=== PATIENT | male | born 1980 | race African-American/Black ===

== ENCOUNTER 2016-11-12 03:29 | Emergency (ER) | payer OTHER ==
[~2016-11-12] VITALS: Ht 170.2 cm; Wt 83.9 kg
[2016-11-12] MEDS ORDERED: NS 1,000 ML IV ONE (04:30)
[2016-11-12] MEDS: MORPHINE 4 MG/ML 1ML SYRINGE IV PRN ×2 (04:44→05:12)
[2016-11-12 04:53] LABS: BASO % 1.2 % (0.0-1.0); EOS # 0.2 K/mm3 (0.0-0.50); EOS % 5.6 % (0.0-3.0); LARGE UNSTAINED CELL # 0.1 K/mm3 (0.0-0.4); LARGE UNSTAINED CELL % 2.9 % (0.0-4.0); MEAN CORPUSCULAR HGB CONC 34.4 g/dl (32.0-36.5); MEAN CORPUSCULAR VOLUME 84.3 fl (80.0-96.0); MONO # 0.3 K/mm3 (0.0-0.8); NEUTROPHILS # 1.4 K/mm3 (1.8-7.7); NEUTROPHILS % 47.3 % (36.0-66.0); PLATELET COUNT, AUTOMATED 188 k/mm3 (150-450); RED CELL DISTRIBUTION WIDTH 12.3 % (11.5-14.5)
[2016-11-12 05:12] LABS: ALBUMIN 3.7 GM/DL (3.2-5.2); ALBUMIN/GLOBULIN RATIO 1.06 (1.00-1.93); ALKALINE PHOSPHATASE 46 U/L (45-117); ALT/SGPT 70 U/L (12-78); ANION GAP 8 MEQ/L (8-16); AST/SGOT 36 U/L (15-37); BILIRUBIN,DIRECT 0.3 MG/DL (0.0-0.2); BILIRUBIN,TOTAL 1.6 MG/DL (0.2-1.0); BLOOD UREA NITROGEN 10 MG/DL (7-18); CALCIUM LEVEL 8.3 MG/DL (8.5-10.1); CARBON DIOXIDE LEVEL 26 MEQ/L (21-32); CHLORIDE LEVEL 108 MEQ/L (98-107); CREATININE FOR GFR 1.11 MG/DL (0.70-1.30); GLOMERULAR FILTRATION RATE > 60.0 (>60); GLUCOSE, FASTING 104 MG/DL (70-105); POTASSIUM SERUM 4.2 MEQ/L (3.5-5.1); SODIUM LEVEL 142 MEQ/L (136-145); TOTAL PROTEIN 7.2 GM/DL (6.4-8.2)
[2016-11-12] MEDS ORDERED: NORCOTAB PO (06:13)
[2016-11-12] MEDS ORDERED: CIPR500T89 PO (06:13)
[2016-11-12] MEDS ORDERED: FLOM5CAP PO (06:13)
[2016-11-12] MEDS ORDERED: NORCO 5/325MG TABLET (BULK FOR ED) PO ONE (06:15)
[2016-11-12] MEDS ORDERED: TAMSULOSIN 0.4 MG CAP PO ONE (06:15)
[2016-11-12] MEDS ORDERED: KETOROLAC 30 MG/ML VIAL (J1885) IV ONE (06:15)
--- NOTE | 2016-11-12 06:20 | REPUSA ---
CLINICAL HISTORY: Abdominal pain. TECHNIQUE: Multiple axial, sagittal and coronal CT images were obtained through the abdomen and pelvi s without administration of oral or IV contrast material. COMMENTS: The liver is of uniform attenuation without mass or defect. There is no intra or extrahepatic biliary ductal dilatation. The spleen is normal. The gallbladder is within normal limits. The pancreas is of normal contour and attenuation characteristics. There is no evidence of adrenal mass. 4.5 mm obstructing stone of the right ureter at L3 level. Mild right hydroureteronephrosis There is no left hydroureter or hydronephrosis. There is no evidence for appendicitis. There is no bowel wall thickening. No evidence for small or la rge bowel obstruction. There is no evidence of abdominal ascites or lymphadenopathy. There is no evidence of intrinsic or extrinsic bladder mass. There is no pelvic ascites or lymphadeno cynthia. Images of the lung bases show no evidence of pleural or parenchymal mass. There are no pleural effusi ons. The bony structures are free of lytic or blastic lesions. IMPRESSION: Obstructing stone of the right ureter. Thank you for your kind referral of this patient.
[2016-11-12 06:30] VITALS: BP 127/72
[2016-11-17] MEDS ORDERED: ONDA1TAB15 PO (12:37)
[2016-11-17] MEDS ORDERED: NAPR500T2 PO (12:37)
== END 2016-11-12 06:34 | disposition home or self-care (01) ==
LOC: EDBD 03:29 → M ED 04:50
DX: N20.1 Calculus of ureter (principal); Z87.442 Personal history of urinary calculi
CPT/HCPCS: 36415; 74176; 80048; 80076; 81001; 83690; 85025; 87086; 93041; 96374; 96375; 96376; 99284; J1885

== ENCOUNTER 2016-11-14 07:41 | Emergency (ER) | payer OTHER ==
[~2016-11-14] VITALS: Ht 170.2 cm; Wt 83.9 kg
[~2016-11-14 07:41] MED LIST: CIPR500T89 PO; FLOM5CAP PO; NORCOTAB PO
[2016-11-14] MEDS ORDERED: ONDANSETRON 4MG/2ML VIAL (J2405) IV ONE (08:15)
[2016-11-14] MEDS ORDERED: KETOROLAC 30 MG/ML VIAL (J1885) IV ONE (08:15)
[2016-11-14 08:53] LABS: BASO % 0.4 % (0.0-1.0); EOS % 0.8 % (0.0-3.0); LARGE UNSTAINED CELL # 0.1 K/mm3 (0.0-0.4); LYMPH # 0.7 K/mm3 (1.5-4.5); LYMPH % 13.1 % (24.0-44.0); MEAN CORPUSCULAR HGB CONC 35.1 g/dl (32.0-36.5); MEAN CORPUSCULAR VOLUME 85.7 fl (80.0-96.0); MONO # 0.3 K/mm3 (0.0-0.8); MONO % 5.8 % (0.0-5.0); NEUTROPHILS # 3.9 K/mm3 (1.8-7.7); NEUTROPHILS % 78.8 % (36.0-66.0); PLATELET COUNT, AUTOMATED 167 k/mm3 (150-450); RED CELL DISTRIBUTION WIDTH 12.4 % (11.5-14.5); WHITE BLOOD COUNT 4.9 K/mm3 (4.0-10.0)
[2016-11-14 09:02] LABS: ANION GAP 8 MEQ/L (8-16); BLOOD UREA NITROGEN 11 MG/DL (7-18); CALCIUM LEVEL 8.6 MG/DL (8.5-10.1); CARBON DIOXIDE LEVEL 28 MEQ/L (21-32); CHLORIDE LEVEL 108 MEQ/L (98-107); CREATININE FOR GFR 1.58 MG/DL (0.70-1.30); GLOMERULAR FILTRATION RATE > 60.0 (>60); GLUCOSE, FASTING 115 MG/DL (70-105); POTASSIUM SERUM 3.6 MEQ/L (3.5-5.1); SODIUM LEVEL 144 MEQ/L (136-145)
--- NOTE | 2016-11-14 09:35 | REP ---
Clinical: Right obstructive uropathy. Comparison: CT dated 11/12/2016. Findings: Right kidney demonstrates mild hydronephrosis and proximal hydroureter unchanged when compared to CT dated 11/12/2016. No right-sided nephrolithiasis, perinephric stranding, cystic or mass lesion is appreciated. Left kidney is normal in appearance without hydronephrosis, perinephric stranding, cystic or mass lesion. The bladder demonstrates left ureteral jet and the absence of the right ureteral jet may be secondary to known obstructive uropathy. Right kidney measures 11.6 x 5.0 x 5.4 cm. Left kidney measures 11.5 x 4.6 x 6.1 cm. Impression: Mild right hydroureteronephrosis and absence of right ureteral jet within the bladder is consistent with the known obstructive uropathy based on CT dated 11/12/2016. Signed by Heron Roa MD 11/14/2016 09:27 A
[2016-11-14] MEDS ORDERED: NAPR500T PO (10:50)
[2016-11-14] MEDS ORDERED: ZOFR4TAB3 PO (10:50)
[2016-11-14 11:23] VITALS: BP 134/75
[2016-11-17] MEDS ORDERED: NAPR500T2 PO (12:37)
[2016-11-17] MEDS ORDERED: ONDA1TAB15 PO (12:37)
== END 2016-11-14 11:26 | disposition home or self-care (01) ==
LOC: M ED 08:22
DX: N20.1 Calculus of ureter (principal); N13.30 Unspecified hydronephrosis; R11.2 Nausea with vomiting, unspecified; Z87.442 Personal history of urinary calculi
CPT/HCPCS: 36415; 76775; 80048; 81001; 85025; 96374; 96375; 99282; J1885; J2405

== ENCOUNTER → 2016-11-18 | Day surgery (SDC) | payer OTHER ==
[~2016-11-18] VITALS: Ht 170.2 cm; Wt 83.9 kg
[~2016-11-18] MED LIST changes: +CONRAY-60 60% 50ML VIAL (Q9961) As Ordered ONE; +HYDROmorphone HCL 1 MG/ML SYRINGE (J1170) IV PRN; +LIDOCAINE 2% INJ 100 MG/5 ML SDV (FOR ANES.) As Ordered ONE; +LR 1,000 ML IV SCH; +METOCLOPRAMIDE INJ 10MG/2ML VIAL (J2765) As Ordered ONE; +METOCLOPRAMIDE INJ 10MG/2ML VIAL (J2765) IV PRN; +MIDAZOLAM INJ 2 MG/2 ML VIAL (J2250) As Ordered ONE; +NAPR500T PO; +NAPR500T2 PO; +NORCO, ANEXSIA 5/325MG TABLET (HYDROcodone/ACETAMINOPHEN) PO PRN; +ONDA1TAB15 PO; +ONDANSETRON 4MG/2ML VIAL (J2405) As Ordered ONE; +ONDANSETRON 4MG/2ML VIAL (J2405) IV PRN; +PERCOCET 5MG/325MG TAB PO PRN; +PROPOFOL 200 MG/20 ML VIAL As Ordered ONE; +ROCURONIUM BROMIDE 50 MG/5 ML VIAL As Ordered ONE; +SUCCINYLCHOLINE 100 MG/5 ML SYRINGE (J0330) As Ordered ONE; +ZOFR4TAB3 PO; +dexameTHASONE 4 MG/ML 1ML VIAL (J1100) As Ordered ONE; +fentaNYL 100 MCG/2 ML INJECTION (J3010) As Ordered ONE; +fentaNYL 100 MCG/2 ML INJECTION (J3010) IV PRN
--- NOTE | 2016-11-18 14:08 | REP ---
Clinical: Nephrolithiasis. Technique: Retrograde pyelogram. Findings: Intraoperative fluoroscopic images demonstrate the patient to be status post right ureteral stent placement. Total fluoroscopic time 13 seconds. Impression: Status post right ureteral stent placement. Signed by Heron Roa MD 11/18/2016 01:59 P
[2016-11-18 15:30] VITALS: BP 161/72
--- NOTE | 2016-11-18 21:11 | RO ---
DATE OF PROCEDURE: 11/18/2016 PREPROCEDURE DIAGNOSIS: Obstructing right ureteral stone. POSTPROCEDURE DIAGNOSIS: Obstructing right ureteral stone. PROCEDURE: Cystoscopy, right ureteroscopy with laser lithotripsy and basket extraction of stones, right retrograde pyelogram with intraoperative interpretation of images, right ureteral stent placement. SURGEON: Dr. Lionel Cortez [employer]IDENCE LIFE DIRECTOR: None. ANESTHESIA: General. OPERATIVE INDICATIONS: This is a 36-year-old male with an obstructing 6 mm proximal right ureteral stone. He was brought to the operating room today for the above procedure. DESCRIPTION OF PROCEDURE: The patient was brought to the operating room and general anesthesia induced. Prophylactic antibiotics were infused. He was then placed in the dorsal lithotomy position and prepped and draped in the usual sterile fashion. A rigid cystoscope was then inserted into the urethral meatus and advanced into the bladder. A wire was then advanced up the right collecting system. A ureteral access sheath was then advanced over the wire of the right collecting system. The wire was then secured to the drapes, and we went up the ureteral access sheath with a flexible ureteroscope. Within the proximal ureter, a 6 mm stone was seen. The stone was then fragmented into smaller pieces using the 200 micron laser fiber. All of the pieces were then removed with a basket. I then examined the rest of the ureter and the kidney and no additional stones were seen. A retrograde pyelogram was performed. It was notable for moderate right hydronephrosis. I then removed the ureteral access sheath and the ureteroscope and no additional stones were seen within the ureter. At this point, the previously placed wire was utilized to advance a 6-Slovak x 22-32 cm JJ ureteral stent up into the right collecting system. The wire was then removed, and there were adequate curls of the stent in the right renal pelvis and in the bladder. The bladder was then emptied of all fluids and this marked the conclusion of the procedure. The patient was then taken out of the dorsal lithotomy position, awakened from anesthesia and transported to the recovery room in stable condition. ESTIMATED BLOOD LOSS: 0 mL. COMPLICATIONS: None. SPECIMENS: Kidney stone fragments. PLAN: The patient will followup in the clinic in a week or two for stent removal. [facility]ITAL[facility]anco
== END ==
LOC: M SDC 10:48
PROVIDERS: ATTEND Urology
DX: N20.1 Calculus of ureter (principal); N13.30 Unspecified hydronephrosis; Z79.899 Other long term (current) drug therapy; Z88.8 Allergy status to other drugs, medicaments and biological substances; Z88.5 Allergy status to narcotic agent
CPT/HCPCS: 52352; 52356; 74420; 82360; 88300; C1726; C1894; J0330; J0690; J1100; J2250; J2405; J2765; J3010; Q9961